=== PATIENT | male | born 1945 | race Caucasian/White ===

== ENCOUNTER 2021-02-20 07:11 | Day surgery (SDC) | payer MEDICARE, OTHER ==
[2021-02-19 14:49] VITALS: BMI 29.5
[2021-02-20 09:19] LABS: Hemoglobin 14.6 g/dL (14.0-18.0)
[2021-02-20] MEDS ORDERED: SUGAMMADEX SODIUM 200 MG/2 ML VIAL ONE (09:25)
[2021-02-20] MEDS ORDERED: Propofol 500 MG/50 ML VIAL ONE (09:25)
[2021-02-20] MEDS ORDERED: Fentanyl 100 MCG/2 ML VIAL ONE (09:25)
[2021-02-20] MEDS ORDERED: EPINEPHrine 1 MG/ML AMP ONE (09:26)
[2021-02-20 09:39] LABS: Anion Gap 17 mmol/L (10-20); BUN (Urea Nitrogen) 30 mg/dL (8.4-25.7); Calc. Creatinine Clearance 53 mL/min (70-130); Calcium 9.6 mg/dL (7.8-10.44); Carbon Dioxide 25 mmol/L (23-31); Chloride 102 mmol/L (98-107); Glucose 145 mg/dL (83-110); Potassium 4.5 mmol/L (3.5-5.1); Sodium 139 mmol/L (136-145)
[2021-02-20] MEDS ORDERED: Dexamethasone 20 MG/5 ML VIAL ONE (09:59)
[2021-02-20] MEDS ORDERED: Rocuronium Bromide 10 MG/ML (10ML VIAL) ONE (09:59)
[2021-02-20] MEDS ORDERED: Glycopyrrolate 0.2 MG/ML 5 ML SYRINGE ONE (09:59)
[2021-02-20] MEDS ORDERED: Ondansetron PF 4 MG/2 ML Vial ONE (09:59)
[2021-02-20] MEDS ORDERED: Lidocaine 1% PF 5 ML VIAL ONE (09:59)
[2021-02-20] MEDS ORDERED: Labetalol HCl 100 MG/20 ML VIAL ONE (10:28)
[2021-02-20] MEDS ORDERED: Meperidine HCl/PF 25 MG/ML VIAL ONE (10:29)
[2021-02-20] MEDS ORDERED: Hydrocodone-Acetamin 15 ML UDCUP ONE (11:53)
[2021-02-20] MEDS ORDERED: Sodium Chloride 0.9% 10 ML ONE (13:36)
== END 2021-02-20 13:50 | disposition home or self-care (01) ==
LOC: SDC 07:11
PROVIDERS: ATTEND Specialist
PROC: 3E0F8GC Introduction of Other Therapeutic Substance into Respiratory Tract, Via Natural or Artificial Opening Endoscopic (ICD-10-PCS; principal; 2021-02-20)
DX: J38.01 Paralysis of vocal cords and larynx, unilateral (principal); R13.10 Dysphagia, unspecified; R06.02 Shortness of breath; I11.0 Hypertensive heart disease with heart failure; I50.9 Heart failure, unspecified; E78.5 Hyperlipidemia, unspecified; I25.10 Atherosclerotic heart disease of native coronary artery without angina pectoris; I25.2 Old myocardial infarction; G47.30 Sleep apnea, unspecified; N28.9 Disorder of kidney and ureter, unspecified; Z86.73 Personal history of transient ischemic attack (TIA), and cerebral infarction without residual deficits; Z79.02 Long term (current) use of antithrombotics/antiplatelets; Z79.52 Long term (current) use of systemic steroids; Z79.82 Long term (current) use of aspirin; Z79.84 Long term (current) use of oral hypoglycemic drugs; Z79.899 Other long term (current) drug therapy; Z95.1 Presence of aortocoronary bypass graft; Z95.2 Presence of prosthetic heart valve
CPT/HCPCS: 36415; 80048; 85014; 85018; 93005; 93010; J0171; J1100; J2175; J2405; J2704; J3010